=== PATIENT | female | born 1960 | race American Indian/Alaskan Native ===

== ENCOUNTER 2018-12-04 16:10 | Emergency (ER) | payer OTHER ==
[2018-12-04 17:18] LABS: Hematocrit 45.2 % (30.3-42.9); Hemoglobin 15.2 gm/dl (10.1-14.3); Mean Corpuscular HGB Conc 34 % (30-34); Mean Corpuscular Volume 100 fl (79-97); Platelet Count 132 K/mm3 (140-440); Red Blood Count 4.51 M/mm3 (3.65-5.03); Red Cell Distribution Width 14.8 % (13.2-15.2)
[2018-12-04 17:37] LABS: Alanine Aminotransferase 53 units/L (7-56); Albumin 4.2 g/dL (3.9-5); BUN/Creatinine Ratio 16; Blood Urea Nitrogen 14 mg/dL (7-17); Hemolysis Index 11
[2018-12-04 17:55] LABS: Basophils % (Manual) 0 % (0.0-1.8); Total Cells Counted 100
[2018-12-04 17:56] LABS: Anisocytosis 1+; Platelet Estimate Consistent w Auto; Poikilocytosis 1+
--- NOTE | 2018-12-04 18:31 | XRay Report ---
PROCEDURE: XR CHEST ROUTINE 2V TECHNIQUE: PA and lateral chest radiographs were obtained. HISTORY: cough FINDINGS: Frontal and lateral views the chest were acquired. The heart is normal in size. The lungs a ppear clear. The pleura and mediastinum are within normal limits. IMPRESSION: No active disease in the chest This document is electronically signed by Prateek Wang MD., December 04 2018 06:29:45 PM ET
--- NOTE | 2018-12-04 19:14 | Emergency Department Report ---
ED Psych HPI - General Chief Complaint: Psych Stated Complaint: SI/TYRESE Time Seen by Provider: 12/04/18 17:01 Source: patient, EMS Mode of arrival: Stretcher - History of Present Illness Initial Comments: 58-year-old female with history of bipolar disorder presents to ED with suicidal ideation. Patient states she has been off her medications for several months now. Patient has plan to cut herself. MD Complaint: suicidal ideation -: unknown Associated Psychiatric Symptoms: depression, suicidal ideation History of same: Yes Improves With: none Worsens With: none Context: not taking psychiatric Associated Symptoms: shortness of breath, other (cough) Treatments Prior to Arrival: none If Self Harm: has plan (to cut herself) - Related Data Allergies Allergy/AdvReac Type Severity Reaction Status Date / Time haloperidol [From Haldol] Allergy Anaphylaxis Verified 12/04/18 16:59 ED Review of Systems ROS: Stated complaint: SI/TYRESE Other details as noted in HPI Comment: All other systems reviewed and negative Constitutional: denies: chills, fever Gastrointestinal: denies: nausea, vomiting Psychiatric: depression, suicidal thoughts ED Past Medical Hx - Past Medical History Hx Hypertension: Yes Hx Diabetes: Yes Hx Psychiatric Treatment: (Bipolar, Schizophrenia) - Social History Smoking Status: Current Every Day Smoker ED Physical Exam - General Limitations: No Limitations General appearance: alert, in no apparent distress - Head Head exam: Present: atraumatic, normocephalic - Eye Eye exam: Present: normal appearance - ENT ENT exam: Present: mucous membranes moist - Neck Neck exam: Present: normal inspection - Respiratory Respiratory exam: Present: normal lung sounds bilaterally. Absent: respiratory distress - Cardiovascular Cardiovascular Exam: Present: normal rhythm, tachycardia - GI/Abdominal GI/Abdominal exam: Absent: distended - Extremities Exam Extremities exam: Present: normal inspection - Neurological Exam Neurological exam: Present: alert, oriented X3 - Psychiatric Psychiatric exam: Present: normal affect, normal mood - Skin Skin exam: Present: warm, dry, intact, normal color. Absent: rash ED Course Vital Signs 12/04/18 16:34 Temperature 98.2 F Pulse Rate 105 H Respiratory 18 Rate Blood Pressure 145/69 ED Medical Decision Making - Lab Data Result diagrams: 12/04/18 17:03 12/04/18 17:03 - Radiology Data Radiology results: report reviewed, image reviewed - Medical Decision Making 58-year-old female presents to ED with suicidal ideations. Patient has been off her psychiatric medications for several months. The patient placed on 1013. Labs unremarkable. Patient initially reported cough, congestion, shortness of breath. O2 sats normal, lungs are clear, patient is in no respiratory distress. Chest x-ray normal. Patient is medically clear for mental health evaluation. Will dispo per psych. Critical care attestation.: If time is entered above; I have spent that time in minutes in the direct care of this critically ill patient, excluding procedure time. ED Disposition Clinical Impression: Suicidal ideation Disposition: [id number]/TX-65 PSY HOSP/PSY UNIT Is pt being admited?: No Condition: Stable
[2018-12-05 01:00] LABS: Bilirubin,Urine NEG (Negative); Blood,Urine NEG (Negative); Color,Urine Yellow (Yellow); Mucus,Urine FEW /HPF; Protein,Urine <15 mg/dL mg/dL (Negative)
[2018-12-05 01:04] LABS: Benzodiazepines Screen,Urine PRESUMPTIVE NEGATIVE; Cannabinoid Screen,Urine PRESUMPTIVE NEGATIVE; Methadone Screen,Urine PRESUMPTIVE NEGATIVE; Opiate Screen,Urine PRESUMPTIVE NEGATIVE
[2018-12-05 01:19] LABS: Amphetamine Screen,Urine PRESUMPTIVE POSITIVE; Cocaine Screen,Urine PRESUMPTIVE POSITIVE
[2018-12-05] MEDS ORDERED: ZESTRIL PO ONE (13:30)
[2018-12-05] MEDS ORDERED: NORVASC PO ONE (13:31)
[2018-12-05] MEDS ORDERED: HCTZ PO ONE (13:31)
--- NOTE | 2018-12-05 14:41 | Consultation ---
History of Present Illness - Reason for Consult Consult date: 12/05/18 Reason for consult: psychiatric evaluation - Chief Complaint Chief complaint: 58 yo F arrived to [facility]/ED and placed on a 1013 for "suicidal, off medications". She told the workforce development vice president, "I'm a cutter, I like to see the blood", and confirms being off meds.She said she was kicked out of where she was staying, with Rosaura, and went on an alcohol binge. She has a hx of Bipolar and non compliance for the past 7 mos of "[place] and Trazodone". She also denies compliance with htn meds. She reports having wandering thoughts and poor concentration , along with insomnia "I haven't been able to sleep since I ran out of my meds, I haven't seen a psychiatrist since I left [place]." She has been living in different cities "[facility], [place], and [facility]". She says Rosaura told her she only wanted her to learn a lesson and she can go back to live with her. She wants to confirm this. She states her disability check comes Friday. She denies withdrawal symptoms and denies daily alcohol use. Medications and Allergies Allergies Allergy/AdvReac Type Severity Reaction Status Date / Time haloperidol [From Haldol] Allergy Anaphylaxis Verified 12/04/18 16:59 Home Medications Medication Instructions Recorded Confirmed Last Taken Type Unobtainable 12/04/18 12/04/18 Unknown History Past psychiatric history - Past Medical History Past Medical History: diabetes, hypertension - past Psychiatric treatment and history psychiatric treatment history: hospitalized in [facility] 4-5 months ago hospitalized in [place] 3-4 years ago multiple past medication trials lithium and trazodone work the best history of self harming behaviors with multiple scars on left forearm - Social History Social history: alcohol abuse, other (unstable living environment) Mental Status Exam - Vital signs Last Vital Signs Temp 98.3 F 12/05/18 13:00 Pulse 87 12/05/18 14:07 Resp 18 12/05/18 13:00 BP 160/90 12/05/18 14:07 Pulse Ox 95 12/05/18 13:00 - Exam Orientation: time, place, person Affect: depressed Mood: congruent with affect Thought content: other (currently denies SI/reports self harming ideation/no HI) Thought Process: Intact Perceptions: none Speech: normal rate and pattern Concentration: distractible Motor activity: normal Level of consciousness: alert Memory: Intact Sleep Symptoms: Difficulty Falling Asleep Appetite: decreased Interaction: cooperative Results Result Diagrams: 12/04/18 17:03 12/04/18 17:03 Abnormal lab results 12/04/18 12/04/18 12/04/18 Range/Units 17:03 17:03 17:03 Hgb 15.2 H (10.1-14.3) gm/dl Hct 45.2 H (30.3-42.9) % MCV 100 H (79-97) fl MCH 34 H (28-32) pg Plt Count 132 L (140-440) K/mm3 Seg Neuts % (Manual) 28.0 L (40.0-70.0) % Lymphocytes % (Manual) 63.0 H (13.4-35.0) % Seg Neutrophils # Man 1.3 L (1.8-7.7) K/mm3 Glucose 188 H (65-100) mg/dL POC Glucose (70-105) AST 61 H (5-40) units/L Total Protein 8.9 H (6.3-8.2) g/dL Salicylates < 0.3 L (2.8-20.0) mg/dL Acetaminophen (10.0-30.0) ug/mL Plasma/Serum Alcohol (0-0.07) % 12/04/18 12/04/18 12/05/18 Range/Units 17:03 17:03 01:44 Hgb (10.1-14.3) gm/dl Hct (30.3-42.9) % MCV (79-97) fl MCH (28-32) pg Plt Count (140-440) K/mm3 Seg Neuts % (Manual) (40.0-70.0) % Lymphocytes % (Manual) (13.4-35.0) % Seg Neutrophils # Man (1.8-7.7) K/mm3 Glucose (65-100) mg/dL POC Glucose 162 H (70-105) AST (5-40) units/L Total Protein (6.3-8.2) g/dL Salicylates (2.8-20.0) mg/dL Acetaminophen < 5.0 L (10.0-30.0) ug/mL Plasma/Serum Alcohol 0.12 H (0-0.07) % All other labs normal. Assessment and Plan Assessment and plan: Impression: bipolar disorder, current episode depression No compliance with medications and non compliance with meds for medical conditions alcohol use disorder, binging type, no withdrawal differentials: borderline personality disorder, substance induced mood disorder Recommendations: continue 1013 restart lithium 300mg bid for mood and trazodone 100mg hs for sleep. She voiced awareness of risks/benefits dispo: inpatient psychiatric facility but will assess daily to determine if she meets criteria for [address] Zazueta
[2018-12-05] MEDS: BUSPAR PO SCH (20:40)
[2018-12-05] MEDS: DESYREL PO SCH (22:43)
[2018-12-05] MEDS: ESKALITH PO SCH (22:43)
[2018-12-06] MEDS: BUSPAR PO SCH ×3 (09:01→20:39)
[2018-12-06] MEDS: ESKALITH PO SCH ×2 (10:00→22:35)
--- NOTE | 2018-12-06 18:53 | Progress Note ---
Subjective - Reason for Consult Consult date: 12/06/18 Reason for consult: follow up - Chief Complaint Chief complaint: 58 yo F arrived to [facility]/ED and placed on a 1013 for "suicidal, off medications". She told the procurement inspector, "I'm a cutter, I like to see the blood", and confirms being off meds.She said she was kicked out of where she was staying, with Rosaura, and went on an alcohol binge. She denies withdrawal symptoms and denies daily alcohol use. She restarted lithium and trazodone and reports no side effects. She denies suicidal or homicidal ideation. Reportedly Rosaura is ok for her return. She gets her check in 2 days. Mental Status Exam - Vital signs Last Vital Signs Temp 98.6 F 12/06/18 14:00 Pulse 104 H 12/06/18 14:00 Resp 20 12/06/18 14:00 BP 121/68 12/06/18 14:00 Pulse Ox 98 12/06/18 14:00 - Exam Narrative exam: Orientation: time, place, person Affect: depressed Mood: congruent with affect Thought content: other (currently denies SI/reports self harming ideation/no HI) Thought Process: Intact Perceptions: none Speech: normal rate and pattern Concentration: distractible Motor activity: normal Level of consciousness: alert Memory: Intact Sleep Symptoms: none now Appetite: decreased Interaction: cooperative Assessment and Plan Impression: bipolar disorder, current episode depression No compliance with medications and non compliance with meds for medical conditions alcohol use disorder, binging type, no withdrawal differentials: borderline personality disorder, substance induced mood disorder She denies suicidal or homicidal ideation today Recommendations: continue 1013 continue lithium 300mg bid for mood and trazodone 100mg hs for sleep. She voiced awareness of risks/benefits dispo: inpatient psychiatric facility but will assess daily to determine if she meets criteria for [address] Zazueta
[2018-12-06] MEDS ORDERED: BUSPAR ONE (20:38)
[2018-12-06] MEDS: DESYREL PO SCH (22:35)
[2018-12-07] MEDS: BUSPAR PO SCH (08:10)
[2018-12-07] MEDS: ESKALITH PO SCH (10:55)
[2018-12-07 11:08] VITALS: BP 139/90
--- NOTE | 2018-12-07 11:10 | Progress Note ---
Subjective - Reason for Consult Consult date: 12/07/18 Reason for consult: Psychiatry Follow-up - Chief Complaint Chief complaint: "I am okay now" 58 yo F arrived to [facility]/ED and placed on a 1013 for SI's. Today the patient was calm and cooperative during the assessment. She stated that her priority at this time is her mental health. She stated that she plan to stay compliant with her medications and follow up with outpatient psy services. She denies SI/HI's and AVH's. She rate her anxiety 2/10, with 10 being the worse. She denies any side effects of her medications. Mental Status Exam - Vital signs Last Vital Signs Temp 98.3 F 12/07/18 10:58 Pulse 94 H 12/07/18 10:58 Resp 20 12/07/18 10:58 BP 139/90 12/07/18 10:58 Pulse Ox 97 12/07/18 10:58 - Exam Narrative exam: MSE: Appearance: calm, cooperative Behavior: regular eye contact Speech: regular rate and tone Mood: "okay" Affect: congruent to mood Thought Process: logical Thought Content: denies SI/HI's and AVH's Motor Activity: sitting up in the bed Cognition: A/O x 3 Insight: appropriate Judgment: appropriate Assessment and Plan Impression: Bipolar DO. Alcohol Use DO. Unspecified Anxiety DO. Today the patient was calm and cooperative during the assessment. No acute withdrawals noted. The patient is no threat to self. Recommendation/Plan: Rescind 1013, continue [place] 300 mg PO BID for mood and Trazodone 100 mg PO HS for sleep. Discussed possible suicidality/medication induced bello with the patient reference Trazodone, she verbalized understanding. Dispo: The patient can follow up with [facility] for outpatient psy services. Will staff Dr Josep Zazueta.
== END 2018-12-07 16:06 | disposition home or self-care (01) ==
LOC: ED 16:10 → EEVIPCON 16:10 → ED 12-07 16:06
DX: F31.9 Bipolar disorder, unspecified (principal); I10 Essential (primary) hypertension; E11.9 Type 2 diabetes mellitus without complications; F20.9 Schizophrenia, unspecified; F17.200 Nicotine dependence, unspecified, uncomplicated; Z88.8 Allergy status to other drugs, medicaments and biological substances
CPT/HCPCS: 36415; 71046; 80053; 80178; 80307; 81001; 82962; 85007; 85025; 99285; G0480; 80320

== ENCOUNTER 2018-12-11 09:40 | Emergency (ER) | payer OTHER ==
[2018-12-11 09:45] VITALS: BP 133/95
--- NOTE | 2018-12-11 10:36 | Emergency Department Report ---
ED General Adult HPI - General Chief complaint: Medical Clearance Stated complaint: R SIDE OF FACE SWOLLEN Time Seen by Provider: 12/11/18 10:20 Source: patient Mode of arrival: Ambulatory Limitations: No Limitations - History of Present Illness Initial comments: Patient is a 58-year-old asthmatic female with past medical history of diabetes hypertension who states that approximately 3-4 days ago she started having some swelling underneath the right eye. This is now spread to the right side of her nose she also has some pain and swelling to the right neck as well. Patient states pains are aching throbbing or 6 out of 10 in severity. She has no difficulty swallowing or breathing. She denies any fevers chills nausea vomiting diarrhea at this time. - Related Data Previous Rx's Medication Instructions Recorded Last Taken Type [place] Carbonate [Lithobid] 300 mg PO BID #60 tablet.er 12/07/18 Unknown Rx traZODone [Desyrel] 100 mg PO QHS #30 tablet 12/07/18 Unknown Rx Clindamycin [Clindamycin CAP] 300 mg PO Q8H #21 cap 12/11/18 Unknown Rx Ibuprofen [Motrin 600 MG tab] 600 mg PO Q8H PRN #20 tablet 12/11/18 Unknown Rx traMADol [Ultram] 50 mg PO Q6HR PRN #12 tablet 12/11/18 Unknown Rx Allergies Allergy/AdvReac Type Severity Reaction Status Date / Time haloperidol [From Haldol] Allergy Anaphylaxis Verified 12/11/18 09:41 ED Review of Systems ROS: Stated complaint: R SIDE OF FACE SWOLLEN Other details as noted in HPI Comment: All other systems reviewed and negative ED Past Medical Hx - Past Medical History Hx Hypertension: Yes Hx Diabetes: Yes Hx Psychiatric Treatment: (Bipolar, Schizophrenia) - Social History Smoking Status: Never Smoker - Medications Home Medications: Home Medications Medication Instructions Recorded Confirmed Last Taken Type [place] Carbonate [Lithobid] 300 mg PO BID #60 tablet.er 12/07/18 Unknown Rx traZODone [Desyrel] 100 mg PO QHS #30 tablet 12/07/18 Unknown Rx Clindamycin [Clindamycin CAP] 300 mg PO Q8H #21 cap 12/11/18 Unknown Rx Ibuprofen [Motrin 600 MG tab] 600 mg PO Q8H PRN #20 tablet 12/11/18 Unknown Rx traMADol [Ultram] 50 mg PO Q6HR PRN #12 tablet 12/11/18 Unknown Rx ED Physical Exam - General Limitations: No Limitations General appearance: alert, in no apparent distress - Head Head exam: Present: atraumatic, normocephalic - Expanded Head Exam Expanded 1 - mild tenderness and induration 2 - shotty anterior cervical lymphadenopathy - Eye Eye exam: Present: normal appearance, PERRL, EOMI, periorbital swelling, periorbital tenderness. Absent: conjunctival injection Pupils: Present: normal accommodation - ENT ENT exam: Present: mucous membranes moist - Neck Neck exam: Present: normal inspection - Respiratory Respiratory exam: Present: normal lung sounds bilaterally. Absent: respiratory distress, wheezes, rales, rhonchi - Cardiovascular Cardiovascular Exam: Present: regular rate, normal rhythm. Absent: systolic murmur, diastolic murmur, rubs, gallop - GI/Abdominal GI/Abdominal exam: Present: soft, normal bowel sounds. Absent: distended, tenderness, guarding, rebound - Extremities Exam Extremities exam: Present: normal inspection - Back Exam Back exam: Present: normal inspection - Neurological Exam Neurological exam: Present: alert, oriented X3 - Psychiatric Psychiatric exam: Present: normal affect, normal mood - Skin Skin exam: Present: warm, dry, intact, normal color. Absent: rash ED Course Vital Signs 12/11/18 09:43 Temperature 98 F Pulse Rate 86 Respiratory 16 Rate Blood Pressure 133/95 O2 Sat by Pulse 98 Oximetry ED Medical Decision Making - Medical Decision Making Patients with some right-sided facial swelling. Patient to be started on antibiotics and medications for symptom relief and she'll be discharged home Critical care attestation.: If time is entered above; I have spent that time in minutes in the direct care of this critically ill patient, excluding procedure time. ED Disposition Clinical Impression: Facial cellulitis Disposition: - TO HOME OR SELFCARE Is pt being admited?: No Does the pt Need Aspirin: No Condition: Stable Instructions: Cellulitis (ED) Referrals: MARY PORTILLO MD [Primary Care Provider] - 3-5 Days Time of Disposition: 10:36
[2018-12-11] MEDS ORDERED: ULTRAM PO ONE (10:49)
[2018-12-11] MEDS ORDERED: CLEOCIN PO ONE (10:49)
== END 2018-12-11 11:05 | disposition home or self-care (01) ==
LOC: ED 09:40
DX: L03.211 Cellulitis of face (principal); F25.0 Schizoaffective disorder, bipolar type; I10 Essential (primary) hypertension; E11.9 Type 2 diabetes mellitus without complications; Z88.8 Allergy status to other drugs, medicaments and biological substances
CPT/HCPCS: 99282

== ENCOUNTER 2019-01-06 12:56 | Emergency (ER) | payer MEDICAID ==
--- NOTE | 2019-01-06 13:06 | Event Note ---
ED Screening Note Date of service: 01/06/19 Time: 13:03 ED Screening Note: 58 y/o female comes in reporting that she has been off her medications for 1 year and now having thoughts of harming herself. This initial assessment/diagnostic orders/clinical plan/treatment(s) is/are subject to change based on patients health status, clinical progression and re- assessment by fellow clinical providers in the ED. Further treatment and workup at subsequent clinical providers discretion. Patient/guardian urged not to elope from the ED as their condition may be serious if not clinically assessed and managed. Initial orders include:
[2019-01-06 13:48] LABS: Hematocrit 43.7 % (30.3-42.9); Hemoglobin 14.7 gm/dl (10.1-14.3); Mean Corpuscular HGB Conc 34 % (30-34); Mean Corpuscular Volume 98 fl (79-97); Platelet Count 158 K/mm3 (140-440); Red Blood Count 4.45 M/mm3 (3.65-5.03); Red Cell Distribution Width 14.2 % (13.2-15.2)
[2019-01-06 13:54] LABS: Alanine Aminotransferase 24 units/L (7-56); Albumin 3.9 g/dL (3.9-5); BUN/Creatinine Ratio 10; Blood Urea Nitrogen 10 mg/dL (7-17); Calcium 9.6 mg/dL (8.4-10.2); Hemolysis Index 12
[2019-01-06 14:22] LABS: Bacteria,Urine 1+ /HPF (Negative); Bilirubin,Urine NEG (Negative); Blood,Urine NEG (Negative); Color,Urine Amber (Yellow); Mucus,Urine 3+ /HPF
[2019-01-06 14:23] LABS: Benzodiazepines Screen,Urine PRESUMPTIVE NEGATIVE; Cannabinoid Screen,Urine PRESUMPTIVE NEGATIVE; Methadone Screen,Urine PRESUMPTIVE NEGATIVE; Opiate Screen,Urine PRESUMPTIVE NEGATIVE
--- NOTE | 2019-01-06 14:33 | Emergency Department Report ---
ED Psych HPI - General Chief Complaint: Psych Stated Complaint: MEDICATION REFILL Time Seen by Provider: 01/06/19 13:23 Source: patient Mode of arrival: Ambulatory Limitations: No Limitations - History of Present Illness Initial Comments: 58-year-old female with a past medical history of diabetes, hypertension, bipolar, and schizophrenia presents to Hospital complaints of feeling overwhelmed, depressed, and hopeless for the past 2 days. She states that the people she lives with stressing out. She also states that she is having ongoing chronic right-sided head and face pain since previous head injury. Her primary care doctor has referred her to pain mangament. She is currently taking lithium and trazodone. She is prescribed an additional medication to help stabilize her mood but she stopped taking the medication because it causes her to have hallucinations. She threw the medication away and cannot recall the name. She currently denies suicidal thoughts. She is however having the impulse to cut herself to make her feel better. Patient states she has been on insulin in the past for her diabetes is not taking medication "a long time". She states her primary care doctor told her that she no longer needed medication for diabetes. - Related Data Previous Rx's Medication Instructions Recorded Last Taken Type [place] Carbonate [Lithobid] 300 mg PO BID #60 tablet.er 12/07/18 Unknown Rx traZODone [Desyrel] 100 mg PO QHS #30 tablet 12/07/18 Unknown Rx Clindamycin [Clindamycin CAP] 300 mg PO Q8H #21 cap 12/11/18 Unknown Rx Ibuprofen [Motrin 600 MG tab] 600 mg PO Q8H PRN #20 tablet 12/11/18 Unknown Rx traMADol [Ultram] 50 mg PO Q6HR PRN #12 tablet 12/11/18 Unknown Rx Allergies Allergy/AdvReac Type Severity Reaction Status Date / Time haloperidol [From Haldol] Allergy Anaphylaxis Verified 12/11/18 09:41 ED Review of Systems ROS: Stated complaint: MEDICATION REFILL Other details as noted in HPI Comment: All other systems reviewed and negative ED Past Medical Hx - Past Medical History Hx Hypertension: Yes Hx Diabetes: Yes Hx Psychiatric Treatment: (Bipolar, Schizophrenia) - Surgical History Past Surgical History?: No - Social History Smoking Status: Never Smoker Substance Use Type: None - Medications Home Medications: Home Medications Medication Instructions Recorded Confirmed Last Taken Type [place] Carbonate [Lithobid] 300 mg PO BID #60 tablet.er 12/07/18 Unknown Rx traZODone [Desyrel] 100 mg PO QHS #30 tablet 12/07/18 Unknown Rx Clindamycin [Clindamycin CAP] 300 mg PO Q8H #21 cap 12/11/18 Unknown Rx Ibuprofen [Motrin 600 MG tab] 600 mg PO Q8H PRN #20 tablet 12/11/18 Unknown Rx traMADol [Ultram] 50 mg PO Q6HR PRN #12 tablet 12/11/18 Unknown Rx ED Physical Exam - General Limitations: No Limitations - Other Other exam information: General: No limitations, patient is alert in no acute distress Head exam: Healed right sided parietal scar from previous head injury Eyes exam: Normal appearance, pupils equal reactive to light, extraocular movements intact ENT: Moist mucous membrane, normal oropharynx Neck exam: Normal inspection, full range of motion, no meningismus nontender Respiratory exam: Clear to auscultation bilateral, no wheezes, rales, crackles Cardiovascular: Normal rate and rhythm, normal heart sounds Abdomen: Soft, nondistended, and nontender, with normal bowel sounds, no rebound, or guarding Extremity: Full range of motion normal inspection no deformity Back: Normal Inspection, full range of motion, no tenderness Neurologic: Alert, oriented x3, cranial nerves intact, no motor or sensory deficit Psychiatric: depressed affect Skin: Warm, dry, intact ED Course Vital Signs 01/06/19 13:09 Temperature 98.3 F Pulse Rate 87 Respiratory 20 Rate Blood Pressure 129/81 [Left] O2 Sat by Pulse 98 Oximetry ED Medical Decision Making - Lab Data Result diagrams: 01/06/19 13:16 01/06/19 13:16 Lab Results 01/06/19 01/06/19 01/06/19 Range/Units 13:16 13:16 13:24 WBC 3.1 L (4.5-11.0) K/mm3 RBC 4.45 (3.65-5.03) M/mm3 Hgb 14.7 H (10.1-14.3) gm/dl Hct 43.7 H (30.3-42.9) % MCV 98 H (79-97) fl MCH 33 H (28-32) pg MCHC 34 (30-34) % RDW 14.2 (13.2-15.2) % Plt Count 158 (140-440) K/mm3 Baso % (Auto) Chemical Process Operator Add Manual Diff Complete Total Counted 100 Seg Neuts % (Manual) 42.0 (40.0-70.0) % Band Neutrophils % 0 % Lymphocytes % (Manual) 40.0 H (13.4-35.0) % Reactive Lymphs % (Man) 0 % Monocytes % (Manual) 13.0 H (0.0-7.3) % Eosinophils % (Manual) 3.0 (0.0-4.3) % Basophils % (Manual) 2.0 H (0.0-1.8) % Metamyelocytes % 0 % Myelocytes % 0 % Promyelocytes % 0 % Blast Cells % 0 % Nucleated RBC % Not Reportable Seg Neutrophils # Man 1.3 L (1.8-7.7) K/mm3 Band Neutrophils # 0.0 K/mm3 Lymphocytes # (Manual) 1.2 (1.2-5.4) K/mm3 Abs React Lymphs (Man) 0.0 K/mm3 Monocytes # (Manual) 0.4 (0.0-0.8) K/mm3 Eosinophils # (Manual) 0.1 (0.0-0.4) K/mm3 Basophils # (Manual) 0.1 (0.0-0.1) K/mm3 Metamyelocytes # 0.0 K/mm3 Myelocytes # 0.0 K/mm3 Promyelocytes # 0.0 K/mm3 Blast Cells # 0.0 K/mm3 WBC Morphology Not Reportable Hypersegmented Neuts Not Reportable Hyposegmented Neuts Not Reportable Hypogranular Neuts Not Reportable Smudge Cells Not Reportable Toxic Granulation Not Reportable Toxic Vacuolation Not Reportable Dohle Bodies Not Reportable Pelger-Huet Anomaly Not Reportable Michael Rods Not Reportable Platelet Estimate Consistent w auto Clumped Platelets Not Reportable Plt Clumps, EDTA Not Reportable Large Platelets Not Reportable Giant Platelets Not Reportable Platelet Satelliting Not Reportable Plt Morphology Comment Not Reportable RBC Morphology Not Reportable Dimorphic RBCs Not Reportable Polychromasia Not Reportable Hypochromasia Not Reportable Poikilocytosis Few Anisocytosis Few Microcytosis Not Reportable Macrocytosis Not Reportable Spherocytes Not Reportable Pappenheimer Bodies Not Reportable Sickle Cells Not Reportable Target Cells Not Reportable Tear Drop Cells Not Reportable Ovalocytes Not Reportable Helmet Cells Not Reportable Moses-[place] Bodies Not Reportable [place] Rings Not Reportable Zeinab Cells Not Reportable Bite Cells Not Reportable Crenated Cell Not Reportable Elliptocytes Not Reportable Acanthocytes (Spur) Not Reportable Rouleaux Not Reportable Hemoglobin C Crystals Not Reportable Schistocytes Not Reportable Malaria parasites Not Reportable Amilcar Bodies Not Reportable Hem Pathologist Commnt No Sodium 138 (137-145) mmol/L Potassium 3.8 (3.6-5.0) mmol/L Chloride 100.0 (98-107) mmol/L Carbon Dioxide 27 (22-30) mmol/L Anion Gap 15 mmol/L BUN 10 (7-17) mg/dL Creatinine 1.0 (0.7-1.2) mg/dL Estimated GFR > 60 ml/min BUN/Creatinine Ratio 10 % Glucose 106 H (65-100) mg/dL Calcium 9.6 (8.4-10.2) mg/dL Total Bilirubin 0.40 (0.1-1.2) mg/dL AST 23 (5-40) units/L ALT 24 (7-56) units/L Alkaline Phosphatase 81 (35-129) units/L Total Protein 8.4 H (6.3-8.2) g/dL Albumin 3.9 (3.9-5) g/dL Albumin/Globulin Ratio 0.9 % Urine Color (Yellow) Urine Turbidity (Clear) Urine pH (5.0-7.0) Ur Specific Picher (1.003-1.030) Urine Protein (Negative) mg/dL Urine Glucose (UA) (Negative) mg/dL Urine Ketones (Negative) mg/dL Urine Blood (Negative) Urine Nitrite (Negative) Urine Bilirubin (Negative) Urine Urobilinogen (<2.0) mg/dL Ur Leukocyte Esterase (Negative) Urine WBC (Auto) (0.0-6.0) /HPF Urine RBC (Auto) (0.0-6.0) /HPF U Epithel Cells (Auto) (0-13.0) /HPF Urine Bacteria (Auto) (Negative) /HPF Urine Mucus /HPF Urine Opiates Screen Urine Methadone Screen Ur Barbiturates Screen Ur Phencyclidine Scrn Ur Amphetamines Screen U Benzodiazepines Scrn Urine Cocaine Screen U Marijuana (THC) Screen Drugs of Abuse Note Plasma/Serum Alcohol < 0.01 (0-0.07) % 01/06/19 01/06/19 Range/Units Unknown Unknown WBC (4.5-11.0) K/mm3 RBC (3.65-5.03) M/mm3 Hgb (10.1-14.3) gm/dl Hct (30.3-42.9) % MCV (79-97) fl MCH (28-32) pg MCHC (30-34) % RDW (13.2-15.2) % Plt Count (140-440) K/mm3 Baso % (Auto) Add Manual Diff Total Counted Seg Neuts % (Manual) (40.0-70.0) % Band Neutrophils % % Lymphocytes % (Manual) (13.4-35.0) % Reactive Lymphs % (Man) % Monocytes % (Manual) (0.0-7.3) % Eosinophils % (Manual) (0.0-4.3) % Basophils % (Manual) (0.0-1.8) % Metamyelocytes % % Myelocytes % % Promyelocytes % % Blast Cells % % Nucleated RBC % Seg Neutrophils # Man (1.8-7.7) K/mm3 Band Neutrophils # K/mm3 Lymphocytes # (Manual) (1.2-5.4) K/mm3 Abs React Lymphs (Man) K/mm3 Monocytes # (Manual) (0.0-0.8) K/mm3 Eosinophils # (Manual) (0.0-0.4) K/mm3 Basophils # (Manual) (0.0-0.1) K/mm3 Metamyelocytes # K/mm3 Myelocytes # K/mm3 Promyelocytes # K/mm3 Blast Cells # K/mm3 WBC Morphology Hypersegmented Neuts Hyposegmented Neuts Hypogranular Neuts Smudge Cells Toxic Granulation Toxic Vacuolation Dohle Bodies Pelger-Huet Anomaly Michael Rods Platelet Estimate Clumped Platelets Plt Clumps, EDTA Large Platelets Giant Platelets Platelet Satelliting Plt Morphology Comment RBC Morphology Dimorphic RBCs Polychromasia Hypochromasia Poikilocytosis Anisocytosis Microcytosis Macrocytosis Spherocytes Pappenheimer Bodies Sickle Cells Target Cells Tear Drop Cells Ovalocytes Helmet Cells Moses-[place] Bodies [place] Rings Zeinab Cells Bite Cells Crenated Cell Elliptocytes Acanthocytes (Spur) Rouleaux Hemoglobin C Crystals Schistocytes Malaria parasites Amilcar Bodies Hem Pathologist Commnt Sodium (137-145) mmol/L Potassium (3.6-5.0) mmol/L Chloride (98-107) mmol/L Carbon Dioxide (22-30) mmol/L Anion Gap mmol/L BUN (7-17) mg/dL Creatinine (0.7-1.2) mg/dL Estimated GFR ml/min BUN/Creatinine Ratio % Glucose (65-100) mg/dL Calcium (8.4-10.2) mg/dL Total Bilirubin (0.1-1.2) mg/dL AST (5-40) units/L ALT (7-56) units/L Alkaline Phosphatase (35-129) units/L Total Protein (6.3-8.2) g/dL Albumin (3.9-5) g/dL Albumin/Globulin Ratio % Urine Color Jamee (Yellow) Urine Turbidity Slightly-cloudy (Clear) Urine pH 5.0 (5.0-7.0) Ur Specific Picher 1.025 (1.003-1.030) Urine Protein 30 mg/dl (Negative) mg/dL Urine Glucose (UA) Neg (Negative) mg/dL Urine Ketones Tr (Negative) mg/dL Urine Blood Neg (Negative) Urine Nitrite Neg (Negative) Urine Bilirubin Neg (Negative) Urine Urobilinogen 4.0 (<2.0) mg/dL Ur Leukocyte Esterase Sm (Negative) Urine WBC (Auto) 5.0 (0.0-6.0) /HPF Urine RBC (Auto) 3.0 (0.0-6.0) /HPF U Epithel Cells (Auto) 8.0 (0-13.0) /HPF Urine Bacteria (Auto) 1+ (Negative) /HPF Urine Mucus 3+ /HPF Urine Opiates Screen Presumptive negative Urine Methadone Screen Presumptive negative Ur Barbiturates Screen Presumptive negative Ur Phencyclidine Scrn Presumptive negative Ur Amphetamines Screen Presumptive positive U Benzodiazepines Scrn Presumptive negative Urine Cocaine Screen Presumptive positive U Marijuana (THC) Screen Presumptive negative Drugs of Abuse Note Disclamer Plasma/Serum Alcohol (0-0.07) % - Medical Decision Making pt has hx of self cutting behavior has not cut herself in several months. He denies weight to kill herself. UDS positive for cocaine and amphetamines. Patient evaluated by mental health and is a candidate for outpatient treatment since she does not quite meet 1013 criteria was includes suicidal, homicidal ideation, acute psychosis, or inability to care for herself. Pt does not want to return to current residence. Social service evaluated pt to evaluate for alternative placement/housing. Patient admits to cocaine abuse but states she does not abuse amphetamines - Differential Diagnosis suicidal, psychosis, borderline personality disorder, bipolar, depression Critical Care Time: No Critical care attestation.: If time is entered above; I have spent that time in minutes in the direct care of this critically ill patient, excluding procedure time. ED Disposition Clinical Impression: Bipolar disorder, Schizophrenia, Cocaine abuse, Noncompliance with medication regimen Disposition: TO HOME OR SELFCARE Is pt being admited?: No Does the pt Need Aspirin: No Condition: Stable Instructions: Cocaine Abuse (ED), Bipolar Disorder (ED), Schizophrenia (ED) Additional Instructions: Take the medication as prescribed. Follow up with your doctor or the clinic/doctor provided. Return if symptoms worsen as indicated by your discharge instructions Referred to the follow-up resources provided by mental health for help with your underlying psychiatric condition. Referrals: [facility] [Provider Group] - 3-5 Days [facility] [Outside] - 3-5 Days PRIMARY CARE, [Primary Care Provider] - 3-5 Days Time of Disposition: 16:06
[2019-01-06 14:50] LABS: Amphetamine Screen,Urine PRESUMPTIVE POSITIVE; Cocaine Screen,Urine PRESUMPTIVE POSITIVE
[2019-01-06 14:52] LABS: Total Cells Counted 100
[2019-01-06 14:53] LABS: Anisocytosis Few; Platelet Estimate Consistent w Auto; Poikilocytosis Few
[2019-01-06] MEDS ORDERED: TYLENOL ONE (19:41)
[2019-01-06] MEDS ORDERED: TYLENOL PO ONE (19:41)
[2019-01-07 07:46] VITALS: BP 166/92
== END 2019-01-07 16:00 | disposition home or self-care (01) ==
LOC: EEVIPCON 12:56 → ED 12:56
DX: F31.9 Bipolar disorder, unspecified (principal); F20.9 Schizophrenia, unspecified; F14.10 Cocaine abuse, uncomplicated; I10 Essential (primary) hypertension; E11.9 Type 2 diabetes mellitus without complications; Z91.14 Patient's other noncompliance with medication regimen; Z79.899 Other long term (current) drug therapy; Z88.8 Allergy status to other drugs, medicaments and biological substances
CPT/HCPCS: 36415; 80053; 80178; 80307; 80320; 81001; 85007; 85025; 99284; 99285; G0480